=== PATIENT | male | born 1995 | race Caucasian/White ===

== ENCOUNTER 2019-03-28 20:26 | Emergency (ER) | payer MEDICAID, SELFPAY ==
[2019-03-28 20:27] VITALS: BP 116/65; PULSE 103; RESP 16; TEMP 37.1; O2SAT 99; BMI 22.1
[2019-03-28 20:33] VITALS: BP 116/65; PULSE 97; RESP 23; O2SAT 100
[2019-03-28 20:44] VITALS: BP 116/65; PULSE 114; RESP 26; O2SAT 99
[2019-03-28 20:57] LABS: Absolute Lymphocyte Count 3.61 X10^3/ul (0.83-4.51); Absolute Neutrophil Count 5.4 X10^3/uL (2.0-7.7); Basophil# 0.03 X10^3/uL; Basophil% 0.3 % (0-1); Eosinophil# 0.16 X10^3/uL; Eosinophils% 1.6 % (0-5); Hematocrit 48.2 % (40-54); Hemoglobin 17.3 g/dl (13.0-16.5); Lymphocyte # 3.61 X10^3/ul (4.0); Lymphocyte % 36.4 % (19-41); Mean Corp Hgb Conc 35.9 g/gl (32-36); Mean Corpuscular Hgb 31.4 pg (27.0-32.0); Mean Corpuscular Volume 87.5 fL (80-94); Mean Platelet Vol. 10.6 fl (6.2-12.0); Monocyte# 0.74 X10^3/uL; Monocyte% 7.5 % (0-10); Neutrophil # 5.37 X10^3/uL (2.7-7.7); Neutrophil % 54.1 % (47-70); Platelet Count 189 K/mm3 (150-450); RBC Distribution Width CV 12.5 % (11.6-14.6); RBC Distribution Width SD 40.2 fl (35.1-43.9); Red Blood Count 5.51 M/mm3 (4.6-6.2); White Blood Count 9.9 K/mm3 (4.4-11.0)
[2019-03-28 21:01] LABS: POSITIVE COUNT NO; POSITIVE DIFFERENTIAL NO; POSITIVE MORPHOLOGY NO
--- NOTE | 2019-03-28 21:02 | ED.RN ---
dr mcclellan states patient doesn't need a sitter. sumit harrell rn [id number]
--- NOTE | 2019-03-28 21:07 | CT_ITS ---
HISTORY: POSSIBLE SEIZURES TODAY EXAMINATION: CT Head or Brain W/O Contrast TECHNIQUE: Multiple axial images were obtained of the brain without intravenous contrast. A radiation dose optimization technique was used for this scan. IV Contrast dosage and agent: None. COMPARISON: None FINDINGS: PARANASAL SINUSES AND MASTOID AIR CELLS: Mild polypoid mucosal thickening ethmoid and maxillary sinuses. Otherwise clear. INTRACRANIAL HEMORRHAGE: None. BRAIN PARENCHYMA: No CT evidence of acute infarct. No intracranial mass or mass effect. There is preservation of the hernandez/white matter interface. Posterior fossa structures are unremarkable. CSF SPACES: Appropriate for age. There is no hydrocephalus. Basal cisterns are patent. CALVARIUM and SKULL BASE: No discrete lytic or blastic abnormalities observed. ORBITS: Both globes, extraocular muscles, optic nerves and retrobulbar fat appear unremarkable. ASPECTS Score for Acute Strokes: 10 CT/Brain/Head without Contrast IMPRESSION: Negative Brain CT without contrast. Individualized dose optimization techniques were used for this CT. at 2159 Reported and signed by: Dimitry Diaz MD Electronically Signed: Dimitry Diaz, at 21:54 EDT Tel , Service support ,
--- NOTE | 2019-03-28 21:07 | EKG12_ITS ---
Test Reason : Blood Pressure : / mmHG Vent. Rate : 092 BPM Atrial Rate : 092 BPM P-R Int : 132 ms QRS Dur : 076 ms QT Int : 326 ms P-R-T Axes : 068 085 055 degrees QTc Int : 403 ms Normal sinus rhythm Normal ECG Confirmed by TABBY LION ([id number]), editor producer MARIE JIMENEZ ([id number]) on 03/31/2019 6:12:35 AM Referred By: TL Confirmed By:TABBY LION
[2019-03-28 21:11] LABS: Anion Gap 10 (5-15); BUN 10 mg/dL (7-18); BUN/Creat Ratio 8.8 RATIO (10-20); Calcium,Total 9.7 mg/dL (8.5-10.1); Chloride 104 mmol/L (98-107); Creatinine, Serum 1.13 mg/dL (0.70-1.30); EST Glomerular Filtration Rate 86 mL/min (>60); Est Glom Filt Rate - Afr Amer 105 mL/min (>60); Estimated Creatinine Clearance 96.68 ml/min; Glucose 87 mg/dL (74-106); Potassium 3.2 mmol/L (3.5-5.1); Sodium Level 140 mmol/L (136-145)
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
--- NOTE | 2019-03-28 21:40 | RAD_ITS ---
HISTORY: syncope and seizure EXAMINATION/TECHNIQUE: XR Chest 1 View: COMPARISON: None FINDINGS: LINES/DEVICES: None. LUNGS: No consolidation, edema or effusion. No pneumothorax. MEDIASTINUM AND CARDIOVASCULAR STRUCTURES: Cardiac silhouette not enlarged. Central airways and mediastinal contour are unremarkable. BONES AND SOFT TISSUES: Unremarkable. RAD/Chest 1 View (Portable) IMPRESSION: No radiographic evidence of acute cardiopulmonary disease. at 2200 Reported and signed by: Dimitry Diaz MD Electronically Signed: Dimitry Diza, at 21:59 EDT Tel , Service support ,
--- NOTE | 2019-03-28 21:45 | CM.ED ---
SOCIAL WORK CALL TO THE [facility]. CRISIS FOLLOW UP APPOINTMENT SCHEDULED FOR TOMORROW, 03/29/19 AT 11AM WITH [facility]. PATIENT AND FRIENDS UPDATED ON TIME AND LOCATION OF APPOINTMENT. FRIENDS TO TRANSPORT PATIENT. UPDATED PATIENT'S NURSE, ZITA. QUE TOBIN, SPINDLE MAKER,ARTIST SUSPECT.
[2019-03-28 22:03] VITALS: BP 124/63; PULSE 92; RESP 21; O2SAT 97
[2019-03-28 22:13] VITALS: BP 124/63; PULSE 88; RESP 22; O2SAT 97
--- NOTE | 2019-03-28 22:22 | ED.VISSUMM ---
- ER Visit Summary Date of Service: 03/28/19 Chief Complaint: Seizure History of Present Illness: The patient is a 23 M who presents by EMS for seizure activity. This was witnessed by his friends. He had an unresponsive episode where he was shaking. He did not have incontinence or bite his tongue. He was using alcohol and marijuana prior to the event. He woke up spontaneously after a few minutes. He did not have seizure activity for EMS. He did vomit. He believes he hit his head but denies any other injuries or pain. No prior seizure history. No change in his sleep. No other inciting events. Patient did mention that he had suicidal thoughts in the past, but is denying this currently. He had a counselor out of town but none in the area. He is not on psychiatric or depression medication. He has no plan or attempt. No other psychiatric history. Physical Examination: Afebrile and vital signs are unremarkable. Head and neck atraumatic. Heart regular. Lungs clear. Abdomen soft. Extremities nontender with no evidence of trauma. Neurovascular intact. Good strength and sensation. Normal reflexes. Negative clonus. Test Results: EKG showed sinus rhythm at a rate of 92. No sign of acute ischemia or infarction pattern. Hemoglobin 17.3. Potassium 3.2. Troponin normal. Alcohol normal. Tox screen pending. Chest x-ray normal. CT brain normal. Emergency Department Course and Treatment: Patient was seen on arrival. IV access obtained. He was placed on a monitor and had seizure precautions. I considered seizure versus syncope. It sounds like this was brought on after marijuana use. He denies any other inciting events or associated symptoms. Work-up was performed. As above, his work-up was all fairly unremarkable. I had the case finishing machine adjuster speak with him because he had some suicidal thoughts in the past. He was also denying current suicidal thoughts to her. He had no plan or attempt for her. He was able to contract for safety. And we will have him follow-up with the counseling center tomorrow. I believe the patient is appropriate for outpatient follow-up and care. He was given seizure precautions. No driving or other risky activities. He was referred to primary care for follow-up. Is no indication to start seizure medications at this time. Avoid drugs and alcohol. Get plenty of rest. Return for any new or worsening issues. Treatment Plan: As above Disposition: Discharge Impression: 1. Seizure 2. THC use This note was generated with [employer] dictation software. It may contain incorrect words, spelling, and punctuation that were not noted in review of the chart prior to signing ED Disposition - Plan for ED Patient: Referrals: Care Physician,No Primary [Primary Care Provider] -
--- NOTE | 2019-03-28 22:27 | ED.DCSUM_ITS ---
- ER Visit Summary Date of Service: 03/28/19 Chief Complaint: Seizure History of Present Illness: The patient is a 23 M who presents by EMS for seizure activity. This was witnessed by his friends. He had an unresponsive episode where he was shaking. He did not have incontinence or bite his tongue. He was using alcohol and marijuana prior to the event. He woke up spontaneously after a few minutes. He did not have seizure activity for EMS. He did vomit. He believes he hit his head but denies any other injuries or pain. No prior seizure history. No change in his sleep. No other inciting events. Patient did mention that he had suicidal thoughts in the past, but is denying this currently. He had a counselor out of town but none in the area. He is not on psychiatric or depression medication. He has no plan or attempt. No other psychiatric history. Physical Examination: Afebrile and vital signs are unremarkable. Head and neck atraumatic. Heart regular. Lungs clear. Abdomen soft. Extremities nontender with no evidence of trauma. Neurovascular intact. Good strength and sensation. Normal reflexes. Negative clonus. Test Results: EKG showed sinus rhythm at a rate of 92. No sign of acute ischemia or infarction pattern. Hemoglobin 17.3. Potassium 3.2. Troponin normal. Alcohol normal. Tox screen pending. Chest x-ray normal. CT brain normal. Emergency Department Course and Treatment: Patient was seen on arrival. IV access obtained. He was placed on a monitor and had seizure precautions. I considered seizure versus syncope. It sounds like this was brought on after marijuana use. He denies any other inciting events or associated symptoms. Work-up was performed. As above, his work-up was all fairly unremarkable. I had the field nurse case manager speak with him because he had some suicidal thoughts in the past. He was also denying current suicidal thoughts to her. He had no plan or attempt for her. He was able to contract for safety. And we will have him follow-up with the counseling center tomorrow. I believe the patient is appropriate for outpatient follow-up and care. He was given seizure precautions. No driving or other risky activities. He was referred to primary care for follow-up. Is no indication to start seizure medications at this time. Avoid drugs and alcohol. Get plenty of rest. Return for any new or worsening issues. Treatment Plan: As above Disposition: Discharge Impression: 1. Seizure 2. THC use This note was generated with [employer] dictation software. It may contain incorrect words, spelling, and punctuation that were not noted in review of the chart prior to signing ED Disposition - Plan for ED Patient: Referrals: Care Physician,No Primary [Primary Care Provider] -
--- NOTE | 2019-03-28 22:27 | ED.DEP ---
ED Disposition - Plan for ED Patient: Instructions: ED Seizure New Onset Unk Cause Referrals: Marie Hudson [NON-STAFF] - Counseling,Center [GROUP OF PHYSICIANS] - Additional Instructions: follow up with counseling center as instructed
[2019-03-28 22:44] VITALS: BP 118/69; PULSE 79; RESP 15; O2SAT 98
--- NOTE | 2019-03-28 22:45 | ED.RN ---
PT GIVEN WRITTEN AND VERBAL DISCHARGE INSTRUCTIONS. EDUCATED ON SEIZURE PRECAUTIONS, NOT TO DRIVE, SHOWER ALONE SWIM ALONE ETC UNTIL HE FOLLOW UP WITH HIS PCP. PT IV D/C COVERED WITH 2X2 GAUZE AND PAPER TAPE. PT DRESSES SELF AND AMBULATES OUT OF DEPT TO FAMILY IN WAITING AREA. PT EDUCATED TO KEEP APPT WITH COUNSELING CENTER ARRANGED BY SOCIAL WORK.
== END 2019-03-28 22:47 | disposition home or self-care (01) ==
LOC: ED 21:28
PROVIDERS: Emergency Provider Emergency Medicine
DX: R56.9 Unspecified convulsions (principal); R11.2 Nausea with vomiting, unspecified; R51 Headache; F17.210 Nicotine dependence, cigarettes, uncomplicated
CPT/HCPCS: 70450; 71045; 80048; 80320; 84484; 85025; 93005; 99285; A4216; G0480